=== PATIENT | male | born 1955 | race Caucasian/White ===

== ENCOUNTER 2016-12-20 15:14 | Outpatient (CLI) | payer OTHER ==
[2012-11-17 07:43] VITALS: O2SAT 97
== END 2016-12-20 15:15 | disposition home or self-care (01) | DRG 554 ==
LOC: CONVCARE 15:14
PROVIDERS: ATTEND Orthopaedic Surgery
DX: M17.12 Unilateral primary osteoarthritis, left knee (principal); S83.242A Other tear of medial meniscus, current injury, left knee, initial encounter; S83.282A Other tear of lateral meniscus, current injury, left knee, initial encounter
CPT/HCPCS: 73560

== ENCOUNTER 2017-01-17 09:55 | Day surgery (SDC) | payer OTHER ==
[2017-01-17] MEDS ORDERED: BUPIVACAINE HCL 0.25% MPF 10 ML SOL INFIL ONE ×2 (10:12)
[2017-01-17] MEDS ORDERED: ONDANSETRON HCL 4 MG/2 ML SOL ONE (11:17)
[2017-01-17] MEDS ORDERED: MIDAZOLAM 2 MG/2 ML SOL ONE (11:17)
[2017-01-17] MEDS ORDERED: PROPOFOL 10 MG/ML EMU IV ONE (11:17)
[2017-01-17] MEDS ORDERED: LIDOCAINE HCL 1% MPF SOL ONE (11:17)
[2017-01-17] MEDS ORDERED: FENTANYL 100MCG/2ML SOL ONE (11:18)
[2017-01-17] MEDS ORDERED: DEXAMETHASONE 20 MG/5 ML (4 MG/ML SOL) ONE (11:53)
[2017-01-17] MEDS ORDERED: MORPHINE SULFATE 10 MG/ML SOL ONE (11:54)
[2017-01-17] MEDS ORDERED: KETOROLAC TROMETHAMINE 30 MG/ML SOL ONE (12:12)
[2017-01-17 14:05] VITALS: TEMP 97
[2017-01-17 14:35] VITALS: RESP 20
[2017-01-17 15:12] VITALS: BP 148/91; PULSE 74; O2SAT 97
== END 2017-01-17 15:08 | disposition home or self-care (01) | DRG 554 ==
LOC: SURG 09:55
PROVIDERS: ATTEND Orthopaedic Surgery
DX: M17.12 Unilateral primary osteoarthritis, left knee (principal); M23.42 Loose body in knee, left knee; S83.242A Other tear of medial meniscus, current injury, left knee, initial encounter; S83.282A Other tear of lateral meniscus, current injury, left knee, initial encounter
CPT/HCPCS: J1100; J1885; J2250; J2270; J2405; J3010; J2001; J2704